=== PATIENT | female | born 1990 | race Caucasian/White ===

== ENCOUNTER 2016-07-20 14:40 | Emergency (ER) | payer SELFPAY ==
[2016-07-20 14:50] VITALS: BP 108/63
[2016-07-20] MEDS ORDERED: CLEOCIN IM ONE (16:52)
[2016-07-20] MEDS ORDERED: MOTRIN PO ONE (16:52)
--- NOTE | 2016-07-20 16:52 | Emergency Department Report ---
- General Chief complaint: Skin/Abscess/Foreign Body Stated complaint: LUMP ON BREAST Time Seen by Provider: 07/20/16 16:18 Source: patient, family Mode of arrival: Ambulatory Limitations: No Limitations - History of Present Illness Initial comments: Patient here with her family and she reports that she's been having a lump in her left breast and swelling with pain over the last 3 months. Denies any fever or chills. Denies any redness. She said it started off as a small lump and now it's gotten bigger. She denies any personal history of breast cancer or any family history of breast cancer. Pain to left breast is 10 out of 10 that. Denies any nausea vomiting. Denies any trauma. Last menstrual period was 07/03/2016. Patient and is a smoker. She says she does not have a primary care doctor. MD complaint: abscess/boil Onset/Timin -: month(s) Tetanus Up to Date: yes Location: chest (left breast) Severity: severe Severity scale (0 -10): 10 Quality: aching Consistency: intermittent Improves with: medication (OTC) Worsens with: palpation, movement Context: other (unknown) Associated symptoms: denies other symptoms Treatments Prior to Arrival: OTC topical medication - Related Data Previous Rx's Medication Instructions Recorded Last Taken Type Ibuprofen [Motrin 800 MG tab] 800 mg PO Q8H PRN #21 tablet 07/20/16 Unknown Rx Sulfamethoxazole/Trimethoprim 1 each PO BID #20 tablet 07/20/16 Unknown Rx [Bactrim DS TAB] Allergies Allergy/AdvReac Type Severity Reaction Status Date / Time No Known Allergies Allergy Verified 11/30/14 10:20 Abscess Boil HPI - HPI Chief Complaint: Skin/Abscess/Foreign Body Stated Complaint: LUMP ON BREAST Time Seen by Provider: 07/20/16 16:18 Home Medications: Previous Rx's Medication Instructions Recorded Last Taken Type Ibuprofen [Motrin 800 MG tab] 800 mg PO Q8H PRN #21 tablet 07/20/16 Unknown Rx Sulfamethoxazole/Trimethoprim 1 each PO BID #20 tablet 07/20/16 Unknown Rx [Bactrim DS TAB] Allergies/Adverse Reactions: Allergies Allergy/AdvReac Type Severity Reaction Status Date / Time No Known Allergies Allergy Verified 11/30/14 10:20 ED Review of Systems ROS: Stated complaint: LUMP ON BREAST Other details as noted in HPI Comment: All other systems reviewed and negative Constitutional: denies: chills, fever Respiratory: no symptoms reported Cardiovascular: other (LT breast pain and lump). denies: chest pain, palpitations Gastrointestinal: denies: abdominal pain, nausea, vomiting, diarrhea Skin: other (lump to lt breast) Neurological: other. denies: headache, weakness, numbness, paresthesias, confusion, abnormal gait, vertigo ED Past Medical Hx - Past Medical History Previous Medical History?: No Hx Hypertension: No Hx Congestive Heart Failure: No Hx Diabetes: No Hx Deep Vein Thrombosis: No Hx Renal Disease: No Hx Sickle Cell Disease: No Hx Seizures: No Hx Asthma: No Hx COPD: No Hx HIV: No - Surgical History Past Surgical History?: No - Family History Family history: no significant - Social History Smoking Status: Current Every Day Smoker Substance Use Type: Alcohol - Medications Home Medications: Home Medications Medication Instructions Recorded Confirmed Last Taken Type Ibuprofen [Motrin 800 MG tab] 800 mg PO Q8H PRN #21 tablet 07/20/16 Unknown Rx Sulfamethoxazole/Trimethoprim 1 each PO BID #20 tablet 07/20/16 Unknown Rx [Bactrim DS TAB] ED Physical Exam - General Limitations: No Limitations General appearance: alert, in no apparent distress - Head Head exam: Present: atraumatic, normocephalic, normal inspection - Eye Eye exam: Present: normal appearance, PERRL, EOMI Pupils: Present: normal accommodation - ENT ENT exam: Present: normal exam, normal orophraynx, mucous membranes moist, TM's normal bilaterally, normal external ear exam - Neck Neck exam: Present: normal inspection, full ROM. Absent: tenderness, meningismus, lymphadenopathy - Respiratory Respiratory exam: Present: normal lung sounds bilaterally. Absent: respiratory distress, chest wall tenderness - Cardiovascular Cardiovascular Exam: Present: regular rate, normal rhythm, normal heart sounds - GI/Abdominal GI/Abdominal exam: Present: soft, normal bowel sounds. Absent: distended, tenderness, guarding, rebound, rigid - Extremities Exam Extremities exam: Present: normal inspection, full ROM, normal capillary refill. Absent: tenderness, pedal edema, joint swelling, calf tenderness - Back Exam Back exam: Present: normal inspection, full ROM - Neurological Exam Neurological exam: Present: alert, oriented X3, normal gait - Psychiatric Psychiatric exam: Present: normal affect, normal mood - Skin Skin exam: Present: warm, dry, intact, normal color (Lump to lt breat. TTP. no nipple discharge. Areola NL exal), other. Absent: erythema - Expanded Skin Exam Expanded Distribution of rash: chest (LT breast) Description of rash: Present: size (7x7 cm), tenderness, swelling, indurated. Absent: erythematous, discharge, fluctuant ED Course Vital Signs 07/20/16 14:45 Temperature 98.0 F Pulse Rate 89 Respiratory 18 Rate Blood Pressure 108/63 O2 Sat by Pulse 100 Oximetry - Reevaluation(s) Reevaluation #1: 07/20/16 17:27 Patient received clindamycin 600 mg IM and Motrin 800 mg by mouth emergency room without any adverse reaction. ED Medical Decision Making - Medical Decision Making ED course: Patient here with lump to left breast 3 months she has been increasing in size and today 7 x 7 cm. Areas tender to palpate. I collaborated with Dr. Hernandez regarding patient presentation and clinical findings. He was agreed upon that patient will be discharged on anti- inflammatory and antibiotic and to follow-up for about patient consultation to include ultrasound and mammogram. Discussed this with patient in length and told to that she will need to follow-up. Given the fact that she does not have a primary care physician I gave her information on [facility] and also [facility]. She voiced understanding of need to follow-up and was given clindamycin 600 mg IM and emergency room along with Motrin 800 mg by mouth. Patient is a smoker and I discussed with her that she needs to stop smoking. Critical care attestation.: If time is entered above; I have spent that time in minutes in the direct care of this critically ill patient, excluding procedure time. ED Disposition Clinical Impression: Breast mass, left, Cellulitis of female breast, Encounter for smoking cessation counseling Disposition: DISCHARGED TO HOME OR SELFCARE Is pt being admited?: No Does the pt Need Aspirin: No Condition: Stable Instructions: Breast Self-exam (ED), Mammogram (ED), Breast Mass (ED), Cellulitis (ED), How to Stop Smoking (ED) Additional Instructions: please stop smoking Please followup with referrals given to you in discharge instructions Take antibiotic and Motrin as prescribed. Will definitely need to follow up with physician for further evaluation and treatment of breath mass versus cellulitis Prescriptions: Ibuprofen [Motrin 800 MG tab] 800 mg PO Q8H PRN #21 tablet PRN Reason: Pain Sulfamethoxazole/Trimethoprim [Bactrim DS TAB] 1 each PO BID #20 tablet Referrals: [facility] [Other] - 2-3 Days (PLS call to schedule appointment) [facility] [Outside] - 2-3 Days [facility] [Outside] - 2-3 Days Forms: Work/School Release Form(ED), Accompanied Note
== END 2016-07-20 17:48 | disposition home or self-care (01) ==
LOC: ED 14:40
DX: N61.0 Mastitis without abscess (principal); F17.200 Nicotine dependence, unspecified, uncomplicated
CPT/HCPCS: 96372

== ENCOUNTER 2017-05-08 14:45 | Outpatient (CLI) | payer OTHER ==
[2017-05-08 15:11] VITALS: BP 94/61
[2017-05-08] MEDS ORDERED: LACTATED RINGERS 500 ML IV ONE (15:11)
[2017-05-08 15:30] LABS: Bacteria,Urine 2+ /HPF (Negative); Bilirubin,Urine NEG (Negative); Blood,Urine NEG (Negative); Color,Urine Yellow (Yellow); Mucus,Urine 3+ /HPF; Nitrite,Urine NEG (Negative); Protein,Urine <15 mg/dL mg/dL (Negative)
[2017-05-08] MEDS ORDERED: ANCEF/NS 1 GM/50 ML 1 GM/50 ML BAG IV ONE (16:26)
[2017-05-08] MEDS ORDERED: ceFAZolin 1 GM in NACL 0.9% 20 ML IV SCH (16:45)
[2017-05-08] MEDS ORDERED: TYLENOL PO ONE (18:52)
== END 2017-05-08 20:00 | disposition home or self-care (01) ==
LOC: TRG 14:45
PROVIDERS: ATTEND Obstetrics & Gynecology
DX: O47.02 False labor before 37 completed weeks of gestation, second trimester (principal); Z3A.24 24 weeks gestation of pregnancy
CPT/HCPCS: 59025; 81001; 96360; 96365; J0690; J7120

== ENCOUNTER 2017-05-19 19:24 | Emergency (ER) | payer SELFPAY ==
[2017-05-19] MEDS ORDERED: TYLENOL PO ONE (21:19)
[2017-05-19] MEDS ORDERED: TYLENOL ONE (21:21)
[2017-05-20] MEDS ORDERED: DELTASONE PO ONE (01:24)
[2017-05-20] MEDS ORDERED: BENADRYL PO ONE (01:24)
[2017-05-20] MEDS ORDERED: REGLAN PO ONE (01:24)
--- NOTE | 2017-05-20 01:56 | Emergency Department Report ---
ED Headache HPI - General Chief Complaint: Headache Stated Complaint: H/A Time Seen by Provider: 05/20/17 01:24 Source: patient Exam Limitations: no limitations - History of Present Illness Initial Comments: Patient is a 27-year-old female who speaks fluent Malaysian patient is 24 weeks and has [employer] ' patient presents today for a headache frontal 3 days this headache is similar to his previous headaches pain described as 4/10 aching pressure pain is not relieved by Tylenol by mouth attempted at home this headache pain is typical duration and intensity of previous headaches patient denies cough fever or chills there is no nausea vomiting or visual changes Quality: moderate Head Injury Location: frontal Recent Head Trauma: occasional headaches Modifying Factors: improves with: other (none) Associated Symptoms: denies: facial pain, fever/chills, flushing, loss of consciousness, nausea/vomiting, nasal congestion, nasal drainage, numbness in legs/feet, rash, seizures, sinus infection, stiff neck, vision changes, weakness Allergies/Adverse Reactions: Allergies No Known Allergies Allergy (Verified 11/30/14 10:20) Home Medications: Ambulatory Orders Tablet 1 tab PO DAILY 05/19/17 Acetaminophen 650 mg PO QID PRN #30 tablet 05/20/17 Metoclopramide [Reglan] 10 mg PO TID PRN #21 tab 05/20/17 diphenhydrAMINE [Benadryl CAP] 25 mg PO Q8HR PRN #21 capsule 05/20/17 ED Review of Systems ROS: Stated complaint: H/A Other details as noted in HPI Constitutional: denies: chills, fever Eyes: denies: eye pain, eye discharge, vision change ENT: denies: ear pain, throat pain, dental pain, congestion Respiratory: denies: cough, shortness of breath, wheezing Cardiovascular: denies: chest pain, palpitations, dyspnea on exertion, syncope Endocrine: no symptoms reported Gastrointestinal: denies: abdominal pain, nausea, vomiting, diarrhea, constipation, hematemesis, hematochezia Genitourinary: denies: urgency, dysuria, discharge Musculoskeletal: denies: back pain, joint swelling, arthralgia Skin: denies: rash, lesions Neurological: headache. denies: weakness, paresthesias, abnormal gait, vertigo Psychiatric: denies: anxiety, depression Hematological/Lymphatic: denies: easy bleeding, easy bruising ED Past Medical Hx - Past Medical History Previous Medical History?: No Hx Hypertension: No Hx Congestive Heart Failure: No Hx Diabetes: No Hx Deep Vein Thrombosis: No Hx Renal Disease: No Hx Sickle Cell Disease: No Hx Seizures: No Hx Asthma: No Hx COPD: No Hx HIV: No - Surgical History Past Surgical History?: No - Social History Smoking Status: Never Smoker Substance Use Type: None - Medications Home Medications: Home Medications Medication Instructions Recorded Confirmed Last Taken Type Tablet 1 tab PO DAILY 05/19/17 05/19/17 Unknown History Acetaminophen 650 mg PO QID PRN #30 tablet 05/20/17 Unknown Rx Metoclopramide [Reglan] 10 mg PO TID PRN #21 tab 05/20/17 Unknown Rx diphenhydrAMINE [Benadryl CAP] 25 mg PO Q8HR PRN #21 capsule 05/20/17 Unknown Rx ED Physical Exam - General Limitations: No Limitations General appearance: alert, in no apparent distress - Head Head exam: Present: atraumatic, normocephalic, normal inspection - Eye Eye exam: Present: normal appearance, PERRL, EOMI. Absent: conjunctival injection, nystagmus, periorbital swelling, periorbital tenderness Pupils: Present: normal accommodation - ENT ENT exam: Present: normal exam, normal orophraynx, mucous membranes moist, TM's normal bilaterally, normal external ear exam - Neck Neck exam: Present: normal inspection, full ROM. Absent: tenderness, meningismus, lymphadenopathy, thyromegaly - Expanded Neck Exam Expanded Neck exam: Absent: tenderness, midline deformity, anterior neck swelling, carotid bruit, tracheal deviation - Respiratory Respiratory exam: Present: normal lung sounds bilaterally. Absent: respiratory distress, wheezes, stridor, chest wall tenderness - Cardiovascular Cardiovascular Exam: Present: regular rate, normal rhythm, normal heart sounds. Absent: systolic murmur, diastolic murmur, rubs, gallop - GI/Abdominal GI/Abdominal exam: Present: soft, normal bowel sounds. Absent: distended, tenderness, guarding, rebound, rigid, bruit, hernia - Rectal Rectal exam: Present: deferred - Extremities Exam Extremities exam: Present: normal inspection - Back Exam Back exam: Present: normal inspection, full ROM. Absent: tenderness, CVA tenderness (R), CVA tenderness (L), muscle spasm, paraspinal tenderness, vertebral tenderness, rash noted - Neurological Exam Neurological exam: Present: alert, oriented X3, CN II-XII intact, normal gait, reflexes normal. Absent: motor sensory deficit - Psychiatric Psychiatric exam: Present: normal affect, normal mood - Skin Skin exam: Present: warm, dry, intact, normal color. Absent: rash ED Course Vital Signs 05/19/17 21:10 Temperature 98.1 F Pulse Rate 104 H Respiratory 18 Rate Blood Pressure 99/59 O2 Sat by Pulse 99 Oximetry ED Medical Decision Making - Medical Decision Making Patient is a 27-year-old female who speaks fluent Malaysian patient is 24 weeks and has [employer] ' patient presents today for a headache frontal 3 days this headache is similar to his previous headaches pain described as 4/10 aching pressure pain is not relieved by Tylenol by mouth attempted at home this headache pain is typical duration and intensity of previous headaches patient denies cough fever or chills there is no nausea vomiting or visual changes exam. pt appears nontoxi, tms clear bilat, nose; boggy mild turbinate erythema swelling no polyps no obstruction, pharynx: moderate erythema no exudate no swelling no lesions no stridor, lungs: clear bilat all lobes no wheezing, pt given tylenol po in ed, plan: reglan benadryl, prednisone, if symptoms improving will dc to home with rx for reglan, benadryl, tylenol prn headache pt will follow up [facility] [employer] tomorrow , pt verbalized agreement and understanding of same. pt for dc to home via pov and family member in stable condition at this time, will [facility]. pt is currently a/ox 3 ambulatory gait steady with nad tolerating po intake without n/v headache reduced to 3/10 at this time and improving. Critical care attestation.: If time is entered above; I have spent that time in minutes in the direct care of this critically ill patient, excluding procedure time. ED Disposition Clinical Impression: Cluster headache Qualifiers: Headache chronicity pattern: unspecified pattern Intractability: not intractable Qualified Code(s): G44.009 - Cluster headache syndrome, unspecified , not intractable Disposition: DC-01 TO HOME OR SELFCARE Is pt being admited?: No Does the pt Need Aspirin: No Condition: Good Instructions: Cluster Headache (ED) Prescriptions: Acetaminophen 650 mg PO QID PRN #30 tablet PRN Reason: Headache diphenhydrAMINE [Benadryl CAP] 25 mg PO Q8HR PRN #21 capsule PRN Reason: Headache Metoclopramide [Reglan] 10 mg PO TID PRN #21 tab PRN Reason: Headache Referrals: PRIMARY CARE, [Primary Care Provider] - 3-5 Days SILVERIO CASPER MD [Staff Physician] - 3-5 Days Forms: Work/School Release Form(ED) Time of Disposition: 02:50
[2017-05-20 03:05] VITALS: BP 96/56
== END 2017-05-20 03:04 | disposition home or self-care (01) ==
LOC: ED 19:24
DX: O26.892 Other specified pregnancy related conditions, second trimester (principal); G44.009 Cluster headache syndrome, unspecified, not intractable; Z3A.24 24 weeks gestation of pregnancy; Z37.9 Outcome of delivery, unspecified
CPT/HCPCS: 99282; J7512; Q0163

== ENCOUNTER 2017-08-30 21:41 | Outpatient (CLI) | payer OTHER | END 2017-08-30 23:30 | disposition home or self-care (01) | LOC: TRG 21:41 → LD 21:45 → TRG 23:30 | PROVIDERS: ATTEND Obstetrics & Gynecology | DX: O36.8130 Decreased fetal movements, third trimester, not applicable or unspecified (principal); O42.92 Full-term premature rupture of membranes, unspecified as to length of time between rupture and onset of labor; Z3A.39 39 weeks gestation of pregnancy | CPT/HCPCS: 59025 ==

== ENCOUNTER 2017-09-05 20:00 | Inpatient (IN) | payer SELFPAY ==
[2017-09-05 22:01] LABS: Hematocrit 29.7 % (30.3-42.9); Hemoglobin 9.4 gm/dl (10.1-14.3); Mean Corpuscular HGB Conc 32 % (30-34); Mean Corpuscular Volume 75 fl (79-97); Platelet Count 243 K/mm3 (140-440); Red Blood Count 3.96 M/mm3 (3.65-5.03); Red Cell Distribution Width 16.3 % (13.2-15.2)
[2017-09-05 22:04] LABS: Mean Corpuscular Hemoglobin 24 pg (28-32)
--- NOTE | 2017-09-05 22:52 | Ultrasound Report ---
FINAL REPORT EXAM: US OB > = 14 WEEKS FETUS HISTORY: limited PNC TECHNIQUE: Transabdominal imaging was obtained of the pelvis along with Doppler interrogation of the uterus. FINDINGS: There is a single viable intra in cephalic presentation with an estimated gestational age of 34 weeks 6 days based on sonographic criteria. There is normal motion and cardiac activity, 152 BPM. The ADOLPH is 8.3 cm which is within normal range. The placenta is posterior in position and is grade 3. The cervical length is 3.2 cm. There are no gross anomalies involving the choroid plexus, stomach, kidneys, bladder, diaphragm, four-chamber heart, heart, three-vessel cord or longitudinal spine. Estimated weight is 2598 grams. IMPRESSION: Single viable intrauterine in cephalic presentation, 34 weeks 6 days as described.
[2017-09-05] MEDS ORDERED: LACTATED RINGERS 1,000 ML ONE (23:11)
[2017-09-05] MEDS: LACTATED RINGERS 1,000 ML IV SCH (23:24)
[2017-09-05] MEDS ORDERED: PITOCin/NS 20 UNIT/1000ML DRIP 20,000 MILLIUNITS/1,000 ML BAG IV ONE (23:25)
[2017-09-05] MEDS ORDERED: CYTOTEC ONE ×2 (23:40→23:41)
[2017-09-05] MEDS ORDERED: SODIUM CHLORIDE FLUSH SYRINGE 10 ML IV PRN (23:45)
[2017-09-05] MEDS ORDERED: SENOKOT S PO SCH (23:45)
[2017-09-05] MEDS ORDERED: DULCOLAX PR PRN (23:51)
[2017-09-05] MEDS ORDERED: PHENERGAN PR PRN (23:51)
[2017-09-05] MEDS ORDERED: TYLENOL PO PRN (23:51)
[2017-09-05] MEDS ORDERED: MILK OF MAGNESIA PO PRN (23:51)
[2017-09-05] MEDS ORDERED: TUCKS PAD TP PRN (23:51)
[2017-09-05] MEDS ORDERED: CYTOTEC PR ONE (23:51)
[2017-09-05] MEDS ORDERED: BENADRYL PO PRN (23:51)
[2017-09-05] MEDS ORDERED: LANSINOH TP PRN (23:51)
[2017-09-05] MEDS ORDERED: ZOFRAN IV PRN (23:51)
[2017-09-05] MEDS ORDERED: PHENERGAN PO PRN (23:51)
[2017-09-05] MEDS ORDERED: NORCO 5/325 PO PRN (23:51)
--- NOTE | 2017-09-05 23:51 | Procedure Note ---
OB Delivery Note - Delivery Date of Delivery: 09/05/17 Surgeon: SHARAD HENSON Estimated blood loss: <100cc - Vaginal Delivery presentation: vertex Delivery position: OA Intrapartum events: no care, PROM->1hr before delivery, precipitous labor- <3hr Delivery induction: none Delivery monitor: external FHT, external uterine Route of delivery: Delivery placenta: spontaneous Episiotomy: none Delivery laceration: none Anesthesia: none - A at 1 minute: 8 at 5 minutes: 9 Gender: Female (time of delivery 23:33, infant weight 6 lbs. 9 oz. or 2969 g)
--- NOTE | 2017-09-05 23:58 | History and Physical Report ---
History of Present Illness Date of examination: 09/05/17 Date of admission: 09/05/17 20:51 Chief complaint: Precipitous labor History of present illness: 27-year-old status post precipitous delivery at ~ 39+6 wks, she is a drop- in patient with no care. Patient claims to have an ultrasound early in with an CARISA of 08/28/1917 putting her at 39 and 6 weeks. Obtain Here Shows GA at ~ 35 Weeks Past History Past Medical History: no pertinent history Past Surgical History: no surgical history [employer] History: denies: chlamydia, gonorrhea, hepatitis B, hepatitis C, herpes, HIV , syphilis Social history: - Obstetrical History Expected Date of Delivery: 09/06/17 Actual Gestation: 39 Week(s) 6 Day(s) : 6 Para: 6 Medications and Allergies Allergies Allergy/AdvReac Type Severity Reaction Status Date / Time No Known Allergies Allergy Verified 11/30/14 10:20 Home Medications Medication Instructions Recorded Confirmed Last Taken Type Tablet 1 tab PO DAILY 05/19/17 05/19/17 Unknown History Acetaminophen 650 mg PO QID PRN #30 tablet 05/20/17 Unknown Rx Metoclopramide [Reglan] 10 mg PO TID PRN #21 tab 05/20/17 Unknown Rx diphenhydrAMINE [Benadryl CAP] 25 mg PO Q8HR PRN #21 capsule 05/20/17 Unknown Rx Ibuprofen [Motrin 600 MG tab] 600 mg PO Q8H PRN #30 tablet 09/05/17 Unknown Rx Multivitamin with Iron 1 each PO DAILY #30 tablet 09/05/17 Unknown Rx [Multivitamins with Iron] Active Meds: Active Medications Acetaminophen (Tylenol) 650 mg PO Q4H PRN PRN Reason: Pain MILD(1-3)/Fever >100.5/LENZ Acetaminophen/Hydrocodone Bitart ([place] 5/325) 2 each PO Q6H PRN PRN Reason: Pain, Moderate (4-6) Bisacodyl (Dulcolax) 10 mg VA BID PRN PRN Reason: Constipation Diphenhydramine HCl (Benadryl) 25 mg PO Q6H PRN PRN Reason: Itching Diphtheria/Tetanus/Acell Pertussis (Boostrix) 0.5 ml IM .ONCE ONE Stop: 09/06/17 23:52 Docusate Sodium (Colace) 100 mg PO BID [facility] Ferrous Sulfate (Feosol) 325 mg PO BID [facility] Lactated Ringer's (Lactated Ringers) 1,000 mls @ 125 mls/hr IV DIRECT RASHAUN Last Admin: 09/05/17 23:24 Dose: 125 mls/hr Oxytocin/Sodium Chloride (Pitocin/Ns 20 Unit/1000ml Drip) 20 units in 1,000 mls @ 250 mls/hr IV DIRECT RASHAUN Ibuprofen (Motrin) 600 mg PO Q6H RASHAUN Magnesium Hydroxide (Milk Of Magnesia) 30 ml PO HS PRN PRN Reason: Constipation Measles/Mumps/Rubella Vaccine Live (M-M-R Ii Vaccine) 0.5 ml SUB-Q .ONCE ONE Stop: 09/06/17 23:52 Misoprostol (Cytotec) 800 mcg VA ONCE ONE Stop: 09/05/17 23:52 Multi-Ingredient Ointment (Lansinoh) 1 applic TP PRN PRN PRN Reason: Sore Nipples Multivitamins/Iron/Calcium ( Vitamin) 1 each PO QDAY [facility] Ondansetron HCl (Zofran) 4 mg IV Q8H PRN PRN Reason: Nausea And Vomiting Promethazine HCl (Phenergan) 25 mg VA Q6H PRN PRN Reason: Nausea And Vomiting Promethazine HCl (Phenergan) 25 mg PO Q6H PRN PRN Reason: Nausea And Vomiting Senna/Docusate Sodium (Senokot S) 2 tab PO Q12H [facility] Sodium Chloride (Sodium Chloride Flush Syringe 10 Ml) 10 ml IV PRN NR Witch Ignacia/Glycerin (Tucks Pad) 1 each TP PRN PRN PRN Reason: Hemorrhoid/cleansing/soothing Review of Systems Constitutional: no fever, no chills, no chronic headaches Eyes: no blurred vision, no diplopia, no photophobia, no blind spots Cardiovascular: no chest pain, no orthopnea, no syncope Respiratory: no cough, no cough with sputum, no excessive sputum, no shortness of breath, no dyspnea on exertion Gastrointestinal: no abdominal pain, no nausea, no vomiting, no diarrhea, no heartburn, no indigestion Genitourinary: no vaginal bleeding, no vaginal discharge, no leakage of fluid - Vital Signs Vital signs: Vital Signs Temp Pulse Resp BP Pulse Ox 99.1 F 93 H 18 103/64 99 09/05/17 20:34 09/05/17 20:34 09/05/17 20:34 09/05/17 20:34 09/05/17 20:34 Temp Pulse Resp BP Pulse Ox 99.1 F 93 H 18 103/64 99 09/05/17 20:34 09/05/17 20:34 09/05/17 20:34 09/05/17 20:34 09/05/17 20:34 - Physical Exam Abdomen: Positive: normal appearance, soft. Negative: distention, tenderness, guarding, rigidity Genitourinary (Female): Positive: normal external genitalia Uterus: Negative: enlarged (firm and well contracted) Results Result Diagrams: 09/05/17 21:42 Abnormal lab results 09/05/17 Range/Units 21:42 Hgb 9.4 L (10.1-14.3) gm/dl Hct 29.7 L (30.3-42.9) % MCV 75 L (79-97) fl MCH 24 L (28-32) pg RDW 16.3 H (13.2-15.2) % All other labs normal. Assessment and Plan PPD#0 s/p -Doing well P: -Routine care -Anticipate discharge in 24-48 hours - Patient Problems (1) Normal spontaneous vaginal delivery Current Visit: No Status: Acute (2) No care in current Current Visit: No Status: Acute (3) 39 weeks gestation of Current Visit: Yes Status: Acute
[2017-09-06] MEDS: PITOCin/NS 20 UNIT/1000ML DRIP 20 UNITS/1,000 ML BAG IV SCH ×2 (00:06→01:01)
[2017-09-06] MEDS: LACTATED RINGERS 1,000 ML IV SCH (00:08)
[2017-09-06] MEDS: MOTRIN PO SCH ×3 (05:26→23:40)
[2017-09-06] MEDS ORDERED: PRENATAL VITAMIN PO SCH (10:00)
[2017-09-06] MEDS ORDERED: COLACE PO SCH (10:00)
[2017-09-06 10:30] LABS: Amphetamine Screen,Urine PRESUMPTIVE NEGATIVE; Benzodiazepines Screen,Urine PRESUMPTIVE NEGATIVE; Cannabinoid Screen,Urine PRESUMPTIVE NEGATIVE; Cocaine Screen,Urine PRESUMPTIVE NEGATIVE; Methadone Screen,Urine PRESUMPTIVE NEGATIVE; Opiate Screen,Urine PRESUMPTIVE NEGATIVE
--- NOTE | 2017-09-06 12:59 | Progress Note ---
Assessment and Plan A: PP Day #1 Stable P: Follow Routine Orders D/c home today RTOin 6 weeks Subjective - Subjective Date of service: 09/06/17 Patient reports: appetite normal, voiding normally, pain well controlled, flatus , ambulating normally Snyder: doing well Objective - Vital Signs Latest vital signs: Vital Signs Temp Pulse Resp BP BP Pulse Ox 09/06/17 08:44 99.3 F 76 18 92/50 99 09/06/17 06:35 98.3 F 69 16 91/50 09/06/17 06:26 16 09/06/17 01:32 99.8 F H 72 100/62 09/05/17 20:34 99.1 F 93 H 18 103/64 99 Intake and Output 09/05/17 09/06/17 09/06/17 22:59 06:59 14:59 Intake Total 320.834 Output Total 500 Balance -179.166 Intake: IV 320.834 Lactated Ringers 1,000 ml 91.667 @ 125 mls/hr IV DIRECT RASHAUN Rx#:[id number] PITOCin/NS 20 UNIT/1000ML 229.167 DRIP 20 units In 1,000 ml @ 250 mls/hr IV DIRECT RASHAUN Rx#:[id number] Output: Urine 500 Void 500 Other: Total, Output Amount 500 # Voids Void 1 Weight 45.813 kg Estimated Blood Loss 100 - Exam Breasts: Present: normal Cardiovascular: Present: Regular rate Lungs: Present: Clear to auscultation, Normal air movement Abdomen: Present: normal appearance, soft, normal bowel sounds Uterus: Present: normal, firm, fundal height below umbilicus Extremities: Present: normal - Labs Labs: Abnormal lab results 09/05/17 Range/Units 21:42 Hgb 9.4 L (10.1-14.3) gm/dl Hct 29.7 L (30.3-42.9) % MCV 75 L (79-97) fl MCH 24 L (28-32) pg RDW 16.3 H (13.2-15.2) %
--- NOTE | 2017-09-06 13:01 | Discharge Summary ---
Providers - Providers Date of Admission: 09/05/17 20:51 Date of discharge: 09/06/17 Attending physician: BROOKLYN NOYOLA MD Primary care physician: BROOKLYN NOYOLA MD Hospitalization Reason for admission: other (s/p ) Delivery: Episiotomy: none Laceration: none Other procedures: none complications: none Discharge diagnosis: IUP at term delivered Elrama baby: female Condition at discharge: Good Disposition: DC-01 TO HOME OR SELFCARE Plan - Discharge Medications Prescriptions: Ibuprofen [Motrin 600 MG tab] 600 mg PO Q8H PRN #30 tablet PRN Reason: Pain Multivitamin with Iron [Multivitamins with Iron] 1 each PO DAILY #30 tablet - Provider Discharge Summary Activity: routine, no sex for 6 weeks, no heavy lifting 4 weeks, no strenuous exercise Diet: routine Instructions: routine Additional instructions: [] Smoking cessation referral if applicable(refer to patient education folder for contact #) [] Refer to [facility]'s [facility] Booklet Call your doctor immediately for: * Fever > 100.5 * Heavy vaginal bleeding ( >1 pad per hour) * Severe persistent headache * Shortness of breath * Reddened, hot, painful area to leg or breast * Drainage or odor from incision. * Keep incision clean and dry at all times and follow doctor's instructions regarding bathing/showering - Follow up plan Follow up: BROOKLYN NOYOLA MD [Primary Care Provider] - 6 Weeks
[2017-09-06 13:35] LABS: Hematocrit 26.7 % (30.3-42.9); Hemoglobin 8.4 gm/dl (10.1-14.3)
[2017-09-06] MEDS: FEOSOL PO SCH (22:50)
[2017-09-06] MEDS ORDERED: M-M-R II VACCINE SUB-Q ONE (23:51)
[2017-09-07] MEDS ORDERED: BOOSTRIX IM ONE (06:00)
[2017-09-07] MEDS: MOTRIN PO SCH ×2 (12:30→18:00)
[2017-09-07] MEDS: FEOSOL PO SCH (12:30)
[2017-09-07 22:34] VITALS: BP 99/63
== END 2017-09-07 21:00 | disposition home or self-care (01) | DRG 775 ==
LOC: TRG 20:00 → LD 20:51 → OB 09-06 01:26
PROVIDERS: ADMIT Obstetrics & Gynecology; ATTEND Obstetrics & Gynecology
PROC: 10E0XZZ Delivery of Products of Conception, External Approach (ICD-10-PCS; principal; 2017-09-05)
PROC: 3E0234Z Introduction of Serum, Toxoid and Vaccine into Muscle, Percutaneous Approach (ICD-10-PCS; 2017-09-06)
DX: O62.3 Precipitate labor (principal); O42.02 Full-term premature rupture of membranes, onset of labor within 24 hours of rupture; Z3A.39 39 weeks gestation of pregnancy; Z37.0 Single live birth; Z23 Encounter for immunization
CPT/HCPCS: 36415; 76805; 80307; 85014; 85018; 85027; 86592; 86706; 86762; 86850; 86900; 86901; 87806; 99211; A6250; G0463; J2590; J7120

== ENCOUNTER 2018-02-13 18:01 | Emergency (ER) | payer SELFPAY ==
[2018-02-13 18:16] VITALS: BP 112/72
[2018-02-13 18:38] LABS: Basophils % (Auto) 0.6 % (0.0-1.8); Eosinophils # (Auto) 0.1 K/mm3 (0.0-0.4); Eosinophils % (Auto) 1.1 % (0.0-4.3); Hematocrit 37.4 % (30.3-42.9); Hemoglobin 12.7 gm/dl (10.1-14.3); Lymphocytes # (Auto) 1.5 K/mm3 (1.2-5.4); Lymphocytes % (Auto) 18.4 % (13.4-35.0); Mean Corpuscular HGB Conc 34 % (30-34); Mean Corpuscular Hemoglobin 28 pg (28-32); Mean Corpuscular Volume 82 fl (79-97); Monocytes # (Auto) 0.5 K/mm3 (0.0-0.8); Monocytes % (Auto) 6.7 % (0.0-7.3); Platelet Count 297 K/mm3 (140-440); Red Blood Count 4.59 M/mm3 (3.65-5.03); Red Cell Distribution Width 15.9 % (13.2-15.2)
[2018-02-13 19:12] LABS: Bacteria,Urine 1+ /HPF (Negative); Bilirubin,Urine NEG (Negative); Blood,Urine LG (Negative); Color,Urine Yellow (Yellow); Mucus,Urine 3+ /HPF
== END 2018-02-13 20:22 | disposition left against medical advice (07) ==
LOC: ED 18:01
DX: O26.891 Other specified pregnancy related conditions, first trimester (principal); Z53.21 Procedure and treatment not carried out due to patient leaving prior to being seen by health care provider
CPT/HCPCS: 36415; 81001; 84702; 85025; 86850; 86900; 86901